=== PATIENT | female | born 1980 | race Caucasian/White ===

== ENCOUNTER 2016-10-25 12:41 | Outpatient (CLI) ==
--- NOTE | 2016-10-25 13:45 | DI ---
EXAM: Three views of the right wrist HISTORY: Right wrist pain with no known injury. COMPARISON: None FINDINGS: There is no lytic or blastic lesion. There is no cortical irregularity or displaced fract ure. The carpal bones and metacarpals are normal. The distal radius and ulna are unremarkable. So ft tissues are normal. IMPRESSION: No acute abnormality of the right wrist.
== END 2016-10-25 12:42 | disposition home or self-care (01) ==
LOC: RAD 12:41
PROVIDERS: ATTEND Emergency Medicine
DX: M25.531 Pain in right wrist (principal)

== ENCOUNTER 2017-02-15 08:44 | Outpatient (CLI) ==
[2017-02-15 12:54] LABS: BASOPHILS % (AUTO) 0.4 % (0.0-3.0); EOSINOPHILS # (AUTO) 0.2 K/ul (0.0-0.7); EOSINOPHILS % (AUTO) 4.1 % (0.0-7.0); HEMATOCRIT 38.9 % (37.0-47.0); HEMOGLOBIN 13.4 g/dl (12.0-16.0); IMMATURE GRANULOCYTE % (AUTO) 0.2 % (0.0-5.0); LYMPHOCYTES # (AUTO) 1.7 K/uL (0.60-3.4); LYMPHOCYTES % (AUTO) 30.7 (10.0-50.0); MEAN CORPUSCULAR HEMOGLOBIN 30.7 pg (27.0-31.0); MEAN CORPUSCULAR HGB CONC 34.4 (31.8-35.4); MONOCYTES # (AUTO) 0.5 K/uL (0.4-2.0); MONOCYTES % (AUTO) 8.5 (0-10); NEUTROPHILS # (AUTO) 3.2 K/ul (2.0-6.9); NEUTROPHILS % (AUTO) 56.1; PLATELET COUNT 185 10^3/uL (140-440); RED BLOOD COUNT 4.37 10^6/ul (4.20-5.40); WHITE BLOOD COUNT 5.64 K/ul (4.6-10.2)
[2017-02-15 13:39] LABS: ALBUMIN 3.8 g/dL (3.4-5.0); ALBUMIN/GLOBULIN RATIO 1.15; ANION GAP 11.7; BILIRUBIN,TOTAL 0.74 mg/dL (0.00-1.20); BUN/CREATININE RATIO 16.9; CALCIUM 8.7 mg/dL (8.2-10.2); CHOL/HDL RATIO 2.9 (4.5-5.5); CREATININE 0.71 mg/dL (0.60-1.30); POTASSIUM 3.7 mmol/L (3.5-5.10); TOTAL PROTEIN 7.1 g/dL (6.4-8.2)
== END 2017-02-15 08:45 | disposition home or self-care (01) ==
LOC: LAB 08:44
PROVIDERS: ATTEND Nurse Practitioner Family
DX: R63.5 Abnormal weight gain (principal)
CPT/HCPCS: 36415; 80053; 80061; 84443; 85025; 93005; 93010

== ENCOUNTER 2017-06-28 13:18 | Outpatient (CLI) ==
[2017-06-28 14:07] LABS: BASOPHILS % (AUTO) 0.3 % (0.0-3.0); EOSINOPHILS # (AUTO) 0.2 K/ul (0.0-0.7); EOSINOPHILS % (AUTO) 2.8 % (0.0-7.0); HEMATOCRIT 39.7 % (37.0-47.0); HEMOGLOBIN 14.3 g/dl (12.0-16.0); IMMATURE GRANULOCYTE % (AUTO) 0.2 % (0.0-5.0); LYMPHOCYTES # (AUTO) 1.5 K/uL (0.60-3.4); LYMPHOCYTES % (AUTO) 26.4 (10.0-50.0); MEAN CORPUSCULAR HEMOGLOBIN 30.8 pg (27.0-31.0); MEAN CORPUSCULAR VOLUME 85.6 fl (81.0-99.0); MONOCYTES # (AUTO) 0.5 K/uL (0.4-2.0); MONOCYTES % (AUTO) 9.1 (0-10); NEUTROPHILS # (AUTO) 3.5 K/ul (2.0-6.9); NEUTROPHILS % (AUTO) 61.2; PLATELET COUNT 213 10^3/uL (140-440); RED BLOOD COUNT 4.64 10^6/ul (4.20-5.40); WHITE BLOOD COUNT 5.73 K/ul (4.6-10.2)
[2017-06-28 14:29] LABS: ALBUMIN 3.7 g/dL (3.4-5.0); ALBUMIN/GLOBULIN RATIO 1.12; ANION GAP 11.3; BILIRUBIN,TOTAL 0.58 mg/dL (0.00-1.20); BUN/CREATININE RATIO 13.63; CALCIUM 8.8 mg/dL (8.2-10.2); CREATININE 0.66 mg/dL (0.60-1.30); POTASSIUM 3.3 mmol/L (3.5-5.10)
== END 2017-06-28 13:19 | disposition home or self-care (01) ==
LOC: LAB 13:18
PROVIDERS: ATTEND General Practice
DX: R21 Rash and other nonspecific skin eruption (principal)
CPT/HCPCS: 36415; 80053; 85025

== ENCOUNTER 2017-12-18 09:04 | Outpatient (CLI) ==
--- NOTE | 2017-12-18 14:34 | MRI ---
EXAM: Cervical spine MRI without contrast. HISTORY: Neck pain. COMPARISON: None. TECHNIQUE: Multiplanar, multisequence MR images were acquired cervical spine without contrast. FINDINGS: The craniocervical junction is normal. The right cerebellar tonsil is larger than the lef t and extends 2 mm below the foramen magnum which is normal. The left tonsil extends to the foramen magnum. The pituitary gland is small. The cervical cord has normal signal intensity. The cervical vertebra are normal in height and intrinsic bone marrow signal. Alignment is anatomic. There are no paravertebral masses. Visualized lung apices are clear. C2-3: The intervertebral disc is normal. C3-4: There is a minor disc bulge without central canal stenosis. Neural foramina are patent. C4-5: There is a mild diffuse disc osteophyte complex and small central disc protrusion that mildly indents the cervical cord and causes mild central canal stenosis. Neural foramina are patent. AP di ameter of the thecal sac is 9 mm. C5-6: There is a minor posterior disc osteophyte complex with a more focal left paracentral componen t and a small superimposed left paracentral disc protrusion. This is associated with minor left cord flattening. There is minor left uncovertebral hypertrophy without foraminal stenosis. C6-7: There is a minor disc bulge. There is no central canal stenosis or foraminal stenosis. C7-T1: The intervertebral disc is normal. IMPRESSION: 1. Mild disc osteophyte complex C4-5 with small central disc protrusion and mild spinal stenosis. 2. Minor left paracentral disc osteophyte complex C5-6 and small superimposed disc protrusion.
== END 2017-12-18 09:05 | disposition home or self-care (01) ==
LOC: RAD 09:04
PROVIDERS: ATTEND Emergency Medicine
DX: M54.2 Cervicalgia (principal); R20.0 Anesthesia of skin

== ENCOUNTER 2018-01-12 19:08 | Emergency (ER) ==
[2018-01-12 19:12] VITALS: BMI 25.8
[2018-01-12] MEDS ORDERED: ZOFRAN 4 MG/2 ML IVP STA (19:24)
[2018-01-12] MEDS ORDERED: MORPHINE 2 MG/ML SYRINGE IVP STA (19:24)
--- NOTE | 2018-01-12 20:18 | ED.PDOC ---
General ED Provider: Dr. DONAVON MULLINS Chief Complaint: Chest Pain Stated Complaint: Came for the Left sided chest pain, sharp type, radiating back to shoulder, not associated with shortness of breath. Time Seen by Physician: 19:15 Mode of Arrival: Walk-In Information Source: Patient Primary Care Provider: DONAVON MULLINS-[facility] Nursing and Triage Documentation Reviewed and Agree: Yes Reviewed sepsis parameters & appropriate labs ordered?: No System Inflammatory Response Syndrome: Not Applicable Sepsis Protocol: For patient's 13 years and over: Temp is 96.8 and below OR 101 and greater Pulse >90 BPM Resp >20/minute Acutely Altered Mental Status Are patient's symptoms suggestive of a new infection, such as: -Pneumonia -Skin, Soft Tissue -Endocarditis -UTI -Bone, Joint Infection -Implantable Device -Acute Abdominal Infection -Wound Infection -Meningitis -Blood Stream Catheter Infection -Unknown Cardiovascular Complaint Exam - Chest Pain Complaint/Exam Onset: Gradual Symptoms Are: Still present Timing: Constant Initial Severity: Moderate Current Severity: Moderate Location: Reports: Left lateral Pain Radiates: Reports: Left shoulder, Left arm Character: Reports: Sharp Aggravating: Reports: None Alleviating: Reports: None Associated Signs and Symptoms: Denies: Diaphoresis, Nausea, Vomiting, Fever, Palpitations, Cough, Hemoptysis, Back pain, Abdominal pain, Dizziness, Short of air, Calf pain, Calf swelling Related Surgical History: Reports: None History of Healthcare-Acquired Pneumonia: Reports: No AMI/ACS Risk Factors: Reports: None TAD Risk Factors: Reports: None Pulmonary Embolism Risk Factors: Reports: None Prior Care for this Complaint: No Recent Stress Test: No Recent Echo/LV Function: No JVD Present: No Subcutaneous Emphysema Present: No Diminshed Breath Sounds: No Reproducible Chest Wall Pain: No Bilateral Pulses Present: No Unequal Pulses Noted: No If Risk Factors for AMI/ACS Consider: EKG, Cardiac Enzymes, Serial Studies, Oxygen, Aspirin Differential Diagnoses: ACS, Chest Wall Pain Review of Systems - Review Of Systems Constitutional: Reports: No symptoms Eyes: Reports: No symptoms Ears, Nose, Mouth, Throat: Reports: No symptoms Respiratory: Reports: No symptoms Cardiac: Reports: Chest pain GI: Reports: No symptoms : Reports: No symptoms Musculoskeletal: Reports: No symptoms Skin: Reports: No symptoms Neurological: Reports: No symptoms Endocrine: Reports: No symptoms Hematologic/Lymphatic: Reports: No symptoms All Other Systems: Reviewed and Negative Past Medical History - Past Medical History Previously Healthy: Yes Endocrine: Reports: None Cardiovascular: Reports: None Respiratory: Reports: None Hematological: Reports: None Gastrointestinal: Reports: None Genitourinary: Reports: None Neuro/Psych: Reports: None Musculoskeletal: Reports: Back Pain Cancer: Reports: None Last Menstrual Period: 3 YEARS AGO - Surgical History General Surgical History: Reports: None - Family History Family History: Reports: None - Social History Smoking Status: Never smoker Hx Substance Use: No Alcohol Screening: None - Immunizations Tetanus Shot up to Date: Yes Physical Exam - Physical Exam Appearance: Well-appearing, No pain distress, Well-nourished Eyes: JEWELL, EOMI, Conjunctiva clear ENT: Ears normal, Nose normal, Oropharynx normal Respiratory: Airway patent, Breath sounds clear, Breath sounds equal, Respirations nonlabored Cardiovascular: RRR, Pulses normal, No rub, No murmur GI/: Soft, Nontender, No masses, Bowel sounds normal, No Organomegaly Musculoskeletal: Normal strength, ROM intact, No edema, No calf tenderness Skin: Warm, Dry, Normal color Neurological: Sensation intact, Motor intact, Reflexes intact, Cranial nerves intact, Alert, Oriented Psychiatric: Affect appropriate, Mood appropriate Interpretation - Radiology Interpretation Radiology Interpretation By: ED Physician Radiology Results: Negative Exam Interpreted: CXR - EKG Interpretation Time of EKG #1: 19:15 Rate: Normal Rhythm: Sinus Ectopy: None Re-Evaluation - Re-Evaluation Time of Re-Evaluation: 22:06 Status: Improved Critical Care Note - Critical Care Note Total Time (mins): 30 Course - Course Hematology/Chemistry: 01/12/18 19:35 01/12/18 19:35 Orders, Labs, Meds: Lab Review 01/12/18 01/12/18 01/12/18 19:35 19:35 19:35 WBC 8.10 RBC 4.30 Hgb 13.4 Hct 37.9 MCV 88.1 MCH 31.2 H MCHC 35.4 RDW Coeff of Salvatore 12.5 Plt Count 175 Immature Gran % (Auto) 0.2 Neut % (Auto) 52.4 Lymph % (Auto) 35.6 Mclennan % (Auto) 8.4 Eos % (Auto) 3.2 Baso % (Auto) 0.2 Immature Gran # (Auto) 0.0 Neut # (Auto) 4.2 Lymph # (Auto) 2.9 Mclennan # (Auto) 0.7 Eos # (Auto) 0.3 Baso # (Auto) 0.0 D-Dimer (Manual) 175.77 Sodium 140 Potassium 3.6 Chloride 104 Carbon Dioxide 26 Anion Gap 13.6 BUN 10 Creatinine 0.70 Estimated GFR (MDRD) 93.00 BUN/Creatinine Ratio 14.28 Glucose 85 Calcium 8.9 Total Bilirubin 0.5 AST 14 L ALT 13 Alkaline Phosphatase 40 L Total Creatine Kinase 50 Troponin I 0.0100 Total Protein 6.9 Albumin 3.7 Globulin 3.2 Albumin/Globulin Ratio 1.16 Orders Category Date Time Status EKG-(ED ONLY) Stat CARDIO 01/12/18 19:24 Completed CBC W/ AUTO DIFF Stat LAB 01/12/18 19:35 Completed COMPREHENSIVE METABOLIC PANEL Stat LAB 01/12/18 19:35 Completed CREATINE KINASE Stat LAB 01/12/18 19:35 Completed D-DIMER Stat LAB 01/12/18 19:35 Completed TROPONIN I Stat LAB 01/12/18 19:35 Completed Dexamethasone 4 mg/ml Inj [Decadron 4 mg/ml Sdv] MEDS 01/12/18 20:50 Discontinued 4 mg IM ONCE STA Ketorolac Tromethamine [Toradol] MEDS 01/12/18 20:50 Discontinued 30 mg IM ONCE STA Morphine Sulfate [Morphine 2 mg/ml Syringe] MEDS 01/12/18 19:24 Discontinued 2 mg IVP ONCE STA Ondansetron HCl/Pf [Zofran 4 mg/2 ml] MEDS 01/12/18 19:24 Discontinued 4 mg IVP ONCE STA CHEST, 2 VIEWS PA & LAT Stat RADS 01/12/18 19:24 Taken Medications Discontinued Medications Generic Name Dose Route Start Last Admin Trade Name Freq PRN Reason Stop Dose Admin Dexamethasone Sodium Phosphate 4 mg 01/12/18 20:50 01/12/18 20:59 Decadron 4 Mg/Ml Sdv IM 01/12/18 20:51 4 mg ONCE STA Administration Ketorolac Tromethamine 30 mg 01/12/18 20:50 01/12/18 20:58 Toradol IM 01/12/18 20:51 30 mg ONCE STA Administration Morphine Sulfate 2 mg 01/12/18 19:24 01/12/18 19:46 Morphine 2 Mg/Ml Syringe IVP 01/12/18 19:25 2 mg ONCE STA Administration Ondansetron HCl 4 mg 01/12/18 19:24 01/12/18 19:46 Zofran 4 Mg/2 Ml IVP 01/12/18 19:25 4 mg ONCE STA Administration Vital Signs: Temp Pulse Resp BP Pulse Ox 01/12/18 21:20 97.6 F 78 16 112/75 98 01/12/18 19:08 97.2 F L 82 16 109/76 100 HELENA Risk Score Age >/= 65: No >/= 3 CAD Risk Factors: No Known CAD (Stenosis >/= 50%): No ASA Use in Past 7 Days: No Severe Angina (>/= 2 episodes in 24 hours): No EKG ST Changes >/= 0.5mm: No Postive Cardiac Marker: No HELENA Total Score: 0 HELENA Risk Score: Risk Score Odds of by 30D 0 0.1 (0.1-0.2) 1 0.3 (0.2-0.3) 2 0.4 (0.3-0.5) 3 0.7 (0.6-0.9) 4 1.2 (1.0-1.5) 5 2.2 (1.9-2.6) 6 3.0 (2.5-3.6) 7 4.8 (3.8-6.1) Departure - Departure Time of Disposition: 22:06 Disposition: HOME SELF-CARE Discharge Problem: Chest pain Instructions: Chest Pain (ED) Condition: Stable Pt referred to PMD for follow-up: Yes IPMP verified?: No Additional Instructions: Keep f/u at [facility] Allergies/Adverse Reactions: Allergies No Known Allergies Allergy (Unverified 06/21/17 08:14) Home Medications: Ambulatory Orders Gabapentin [Neurontin] 100 mg PO BEDTIME 01/12/18 Hydrocodone Bit/Acetaminophen [[place] 5-325] 5 mg PO PRN PRN 01/12/18 Disposition Discussed With: Patient, Family
[2018-01-12] MEDS ORDERED: DECADRON 4 MG/ML SDV IM STA (20:50)
[2018-01-12] MEDS ORDERED: TORADOL IM STA (20:50)
[2018-01-12 21:43] VITALS: BP 112/75; TEMP 97.6
--- NOTE | 2018-01-13 07:15 | DI ---
EXAM: Chest two view, frontal and lateral views. HISTORY: Chest pain. COMPARISON: None available. FINDINGS: The heart size is normal. There is no pulmonary vascular congestion. The lungs are clear . No pleural effusion or pneumothorax is seen. No acute osseous abnormality identified. IMPRESSION: No acute cardiopulmonary process.
== END 2018-01-12 22:25 | disposition home or self-care (01) ==
LOC: ED 19:08
DX: R07.9 Chest pain, unspecified (principal)
CPT/HCPCS: 36415; 80053; 82550; 84484; 85025; 85379; 93005; 93010; 96372; 96374; 96375; 99284

== ENCOUNTER 2018-05-16 10:34 | Outpatient (CLI) | END 2018-05-16 10:35 | disposition home or self-care (01) | LOC: LAB 10:34 | PROVIDERS: ATTEND Internal Medicine Rheumatology | DX: E55.9 Vitamin D deficiency, unspecified (principal); D50.9 Iron deficiency anemia, unspecified; R53.83 Other fatigue; M19.90 Unspecified osteoarthritis, unspecified site | CPT/HCPCS: 36415; 82306; 82607; 82728; 82746; 84550; 86200 ==

== ENCOUNTER → 2018-05-16 | Outpatient (REF) | LOC: LAB 10:28 | DX: Z02.89 Encounter for other administrative examinations (principal) | CPT/HCPCS: 36415; 80053; 80061; 83036; 83540; 84100; 84550; 85025; 86140 ==